=== PATIENT | female | born 1970 | race Caucasian/White ===

== ENCOUNTER 2018-02-13 14:19 | Outpatient (CLI) | payer OTHER ==
--- NOTE | 2018-02-13 16:01 | MMO ---
SCREENING MAMMOGRAPHY 02/13/18 COMPARISON: None. HISTORY: Baseline screening mammogram. FINDINGS: The patient's mammogram is interpreted with the assistance of computer aided detection. Breast parenchyma is heterogeneously dense, limiting mammographic sensitivity. There are benign micro calcifications noted bilaterally. No dominant mass or architectural distortion. No concerning microca lcifications are noted. IMPRESSION: BI-RADS 2: Benign Finding(s) Routine annual screening mammography (for women over age 40). POS: [facility]
== END 2018-02-13 14:20 | disposition home or self-care (01) ==
LOC: SCSMAMMO 14:19
PROVIDERS: ATTEND Family Medicine
DX: Z12.31 Encounter for screening mammogram for malignant neoplasm of breast (principal)
CPT/HCPCS: 77067

== ENCOUNTER 2018-02-13 15:51 | Outpatient (CLI) | payer OTHER | END 2018-02-13 15:52 | disposition home or self-care (01) | LOC: CTENTCT 15:51 | PROVIDERS: ATTEND Specialist | DX: J32.9 Chronic sinusitis, unspecified (principal) | CPT/HCPCS: 70486 ==